=== PATIENT | male | born 1960 | race Caucasian/White ===

== ENCOUNTER 2019-03-22 10:20 | Emergency (ER) | payer OTHER ==
[~2019-03-22] VITALS: Ht 180.3 cm; Wt 81.8 kg
[2019-03-22 10:23] VITALS: BP 99/57
--- NOTE | 2019-03-22 10:52 | NUR ---
Dr morton stated pt unsteady on feet at this time and have him stay an additional time to sober up and eat something. no additional fluids ordered. pt refuses to stay, observed drinking water but refused food. pt girlfriend at bedside to care for pt.
== END 2019-03-22 11:18 | disposition home or self-care (01) ==
LOC: ER 10:21
DX: F10.929 Alcohol use, unspecified with intoxication, unspecified (principal); R47.81 Slurred speech; R26.81 Unsteadiness on feet; R42 Dizziness and giddiness; I48.91 Unspecified atrial fibrillation; I10 Essential (primary) hypertension; F17.200 Nicotine dependence, unspecified, uncomplicated; Z98.890 Other specified postprocedural states; Y90.9 Presence of alcohol in blood, level not specified
CPT/HCPCS: 99283